=== PATIENT | female | born 1985 | race Caucasian/White ===

== ENCOUNTER → 2020-04-09 | Outpatient (CLI) | payer OTHER ==
--- NOTE | 2020-04-09 17:57 | RAD ---
EXAM: 1. BILATERAL DIGITAL DIAGNOSTIC MAMMOGRAPHY. 2. LEFT BREAST ULTRASOUND. HISTORY: Palpable focus left lower outer breast. TECHNIQUE: Bilateral full field digital images were obtained in CC and MLO projections and spot compression. Computer-aided detection was applied. Sonography of the left breast was also performed. COMPARISON: None available. This is interpreted as a baseline study. COMPOSITION: C. The breasts are heterogeneously dense, which may obscure small masses. FINDINGS: A skin marker is placed inferomedially on the left at the site of palpable concern. Underlying this, there is no mammographic abnormality. A dense parenchymal island superiorly on the left resolves on a second projection. Scattered and coarse calcifications are benign. There are no suspicious masses, microcalcifications or architectural distortion. Sonography of the palpable focus reveals no suspicious lesion. The palpable focus corresponds with a dense parenchymal island at the 7:00 position 7 cm from the nipple. Images of the left upper outer breast reveal a benign 8 x 5 x 2 mm cyst at the 1:00 position 6 cm from the nipple. There is no suspicious sonographic finding. Images of the left axilla revealed normal-appearing lymph nodes. BI-RADS CATEGORY 2: Benign. RECOMMENDATION: 1. Ongoing clinical follow-up of palpable foci or breast tenderness. This negative result should not delay ongoing management of a clinically suspicious finding. 2. Begin screening mammography at age 40 or as otherwise clinically indicated. If mammography demonstrates dense breast tissue (heterogenously dense or extremely dense, category C or D), which could hide abnormalities, and if other risk factors for breast cancer have been identified, supplemental screening tests that may be suggested by the ordering physician may be of benefit. Dense breast tissue, in and of itself, is a relatively common condition. Therefore, this information is not provided to cause undue concern, but rather to raise awareness and to promote discussion with the referring physician regarding the presence of other risk factors, in addition to dense breast tissue. The results of this mammography examination is provided to the patient and referring physician. The patient should contact their referring physician if any questions or concerns exist regarding this report. PQRS compliance statement - Patient information was entered into a reminder system with a target due date for the next mammogram. "Our facility is accredited by the [employer] Mammography [employer]." Electronically signed by: Sundeep Burgos MD (04/09/2020 5:55 PM) [place] [id number]
== END | disposition home or self-care (01) ==
LOC: MAMMO 13:48
PROVIDERS: ATTEND Obstetrics & Gynecology
DX: R92.1 Mammographic calcification found on diagnostic imaging of breast (principal); N63.21 Unspecified lump in the left breast, upper outer quadrant; N60.02 Solitary cyst of left breast
CPT/HCPCS: 76641; 77066